=== PATIENT | male | born 1990 | race Caucasian/White ===

== ENCOUNTER 2020-01-14 12:15 | Emergency (ER) | payer OTHER ==
[~2020-01-14] VITALS: Ht 188 cm; Wt 105.7 kg
[2020-01-14 12:19] VITALS: BP 151/106
--- NOTE | 2020-01-14 12:24 | NUR ---
Patient ambulated to bed 5. RN evaluating patient at bedside.
--- NOTE | 2020-01-14 12:29 | NUR ---
29 Y/O M C/C H/A X 2 MONTHS. PER PT H/A WORSENS IN THE PM, IMPROVES IN THE AM. 10/26, TINGLING SENSATION, BEER ALLEVIATES, PM EXARCERBATES. TAKEN TYLENOL WITH SLIGHT RELIEF. CN II,III,IV, - V,VII,XII WNL. NKA. NO HX. NO RX. NO NVD. DENIES FAMILY HX OF STROKE. NEURO ASSESSMENT WNL ; PUPILS PERRLA. SIDE RAIL X1.
--- NOTE | 2020-01-14 12:32 | NUR ---
ERMD AT BEDSIDE
--- NOTE | 2020-01-14 12:33 | NUR ---
Dr. Urbina is evaluating the patient at bedside.
[2020-01-14 13:39] LABS: BASOPHILS # (AUTO) 0.1 K/uL (0.00-0.22); BASOPHILS % (AUTO) 0.8 % (0.0-2.0); EOSINOPHILS # (AUTO) 0.1 K/uL (0-0.4); EOSINOPHILS % (AUTO) 0.9 % (0.0-4.0); HEMATOCRIT 44.5 % (36-52); HEMOGLOBIN 15.2 g/dL (12.0-18.0); LYMPHOCYTES # (AUTO) 1.2 K/uL (2.0-11.5); LYMPHOCYTES % (AUTO) 20.4 % (20.5-51.1); MEAN CORPUSCULAR HEMOGLOBIN 30 pg (27-31); MEAN CORPUSCULAR HGB CONC 34 g/dL (33-37); MONOCYTES # (AUTO) 0.5 K/uL (0.8-1.0); MONOCYTES % (AUTO) 7.6 % (1.7-9.3); NEUTROPHILS # (AUTO) 4.3 K/uL (1.8-7.7); NEUTROPHILS % (AUTO) 70.3 % (42.2-75.2); PLATELET COUNT (AUTO) 222 K/uL (140-450); RED BLOOD CELL COUNT(AUTO) 5.05 MIL/uL (4.20-6.10); RED CELL DISTRIBUTION WIDTH 13.2 % (11.6-13.7); WHITE BLOOD COUNT (AUTO) 6.1 K/uL (4.8-10.8)
[2020-01-14 14:01] LABS: ALBUMIN 4.2 g/dL (3.4-5.0); ANION GAP 7.8 (8-16); CARBON DIOXIDE 34.4 mmol/L (21-32); POTASSIUM 4.2 mmol/L (3.5-5.1); THYROID STIMULATING HORMONE 2.61 uIU/mL (0.34-3.74); TOTAL BILIRUBIN 0.6 mg/dL (0.0-1.0)
--- NOTE | 2020-01-14 14:03 | NUR ---
PT RESTING IN BED, SIDE RAIL X1
[2020-01-14 14:41] VITALS: BP 126/78
--- NOTE | 2020-01-14 14:41 | NUR ---
Patient discharged with v/s stable. Written and verbal after care instructions given and explained. Patient alert, oriented and verbalized understanding of instructions. Ambulatory with steady gait. All questions addressed prior to discharge. ID band removed. Patient advised to follow up with PMD. Rx of FIORICET given. Patient educated on indication of medication including possible reaction and side effects. Opportunity to ask questions provided and answered.
== END 2020-01-14 14:41 | disposition home or self-care (01) ==
LOC: MED 12:15
DX: R51 Headache (principal)
CPT/HCPCS: 36415; 70450; 80053; 84443; 85025; 99284

== ENCOUNTER 2020-04-08 18:39 | Emergency (ER) | payer OTHER ==
[~2020-04-08] VITALS: Ht 188 cm; Wt 104.3 kg
[2020-04-08 18:42] VITALS: BP 144/78
--- NOTE | 2020-04-08 18:46 | NUR ---
Patient ambulated to bed 4. RN evaluating patient at bedside.
--- NOTE | 2020-04-08 18:59 | NUR ---
29 y/o male from home c/o headache with nausea x 3 wks. Denies trauma/injury to head. States pain is "clustered" on left side. Denies blurred vision/ringing in ears. Awake and alert. Took Ibuprofen at 0400 with no relief. VSS medhx: denies
--- NOTE | 2020-04-08 19:09 | NUR ---
RECEIVED REPORT FRACISCO STARK RN
--- NOTE | 2020-04-08 19:19 | NUR ---
MD FUNK AT BEDSIDE
--- NOTE | 2020-04-08 19:24 | NUR ---
PT PUT ON O2 REQUESTED BY . O2 SAT RA 100%. PT BELIEVES THE O2 MIGHT HELP HIS HEADACHE
[2020-04-08] MEDS ORDERED: KETOROLAC 60 MG/2 ML VIAL IM ONE (19:25)
[2020-04-08 20:02] VITALS: BP 142/50
--- NOTE | 2020-04-08 20:03 | NUR ---
Patient discharged with v/s stable. Written and verbal after care instructions given and explained. Patient alert, oriented and verbalized understanding of instructions. Ambulatory with steady gait. All questions addressed prior to discharge. ID band removed. Patient advised to follow up with PMD. Rx of MOTRIN, ZOFRAN, AND NORCO given. Patient educated on indication of medication including possible reaction and side effects. Opportunity to ask questions provided and answered.
== END 2020-04-08 20:03 | disposition home or self-care (01) ==
LOC: MED 18:39
DX: R51 Headache (principal); R11.0 Nausea
CPT/HCPCS: 96372; 99283; J1885